=== PATIENT | female | born 1985 | race Two or more races ===

== ENCOUNTER 2017-08-27 08:44 | Emergency (ER) | payer BC ==
[~2017-08-27] VITALS: Ht 160 cm; Wt 81.6 kg
--- NOTE | 2017-08-27 09:16 | Emergency Room Report ---
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 And reported that everything was progressing appropriately At this time patient began having vaginal bleeding she reports that she was told she had a hematoma Otherwise denies any abdominal cramping denies any vomiting and has any chest pain or shortness of breath Allergies: Coded Allergies: No Known Allergies (Unverified , 08/27/17) Patient History Past Medical History: see triage record Pertinent Family History: none Last Menstrual Period: 10 weeks Now: Yes Reviewed Nursing Documentation: PMH: Agreed, PSxH: Agreed Nursing Documentation-PMH Past Medical History: No Stated History Review of Systems All Other Systems: negative except mentioned in HPI Physical Exam Vital Signs Date Time Temp Pulse Resp B/P (MAP) Pulse Ox O2 Delivery O2 Flow Rate FiO2 08/27/17 08:52 98.2 120 18 152/74 97 Room Air Sp02 EP Interpretation: reviewed, normal General Appearance: well appearing, no apparent distress Head: normocephalic, atraumatic Eyes: bilateral eye PERRL, bilateral eye EOMI ENT: hearing grossly normal, normal pharynx, TMs + canals normal, uvula midline Neck: full range of motion, supple, no meningismus, no bony tend Respiratory: lungs clear, normal breath sounds, no rhonchi, no respiratory distress, no retraction, no accessory muscle use Cardiovascular #1: normal peripheral pulses, regular rate, rhythm, no edema, no gallop, no JVD, no murmur Gastrointestinal: normal bowel sounds, non tender, soft, no mass, no organomegaly, non-distended, no guarding, no hernia, no pulsatile mass, no rebound Genitourinary: no CVA tenderness, other - Patient has soaked through her pants with blood Musculoskeletal: normal inspection Neurologic: oriented x3, responsive, variety performer III-XII nml as tested, motor strength/ tone normal, sensory intact Psychiatric: mood/affect normal Skin: normal color, no rash, warm/dry, palpation normal Lymphatic: normal inspection, no adenopathy Medical Decision Making Diagnostic Impression: Primary Impression: Threatened Additional Impression: Subchorionic hematoma ER Course With the patient's history and examination, multiple differentials considered, including but not limited to , ectopic , ovarian torsion, gastritis, cholecystitis, pancreatitis, appendicitis Patient's ultrasound reveals a what appears to be subchorionic hematoma Both gestational sacs are seen within the uterus also heart rate is seen Patient has been in contact with their IVF specialist and are following up there in the next 30 minutes at this time given the patient's blood work all within normal limits Patient does not show signs of hemorrhage acutely The os is also closed And therefore patient will have followup emergently with their specialist Labs Test 08/27/17 09:08 08/27/17 09:09 White Blood Count 13.0 K/UL (4.8-10.8) Red Blood Count 4.38 M/UL (4.20-5.40) Hemoglobin 13.8 G/DL (12.0-16.0) Hematocrit 39.5 % (37.0-47.0) Mean Corpuscular Volume 90 FL (80-99) Mean Corpuscular Hemoglobin 31.4 PG (27.0-31.0) Mean Corpuscular Hemoglobin Concent 34.8 G/DL (32.0-36.0) Red Cell Distribution Width 12.3 % (11.6-14.8) Platelet Count 242 K/UL (150-450) Mean Platelet Volume 9.5 FL (6.5-10.1) Neutrophils (%) (Auto) 71.4 % (45.0-75.0) Lymphocytes (%) (Auto) 17.7 % (20.0-45.0) Monocytes (%) (Auto) 3.9 % (1.0-10.0) Eosinophils (%) (Auto) 6.0 % (0.0-3.0) Basophils (%) (Auto) 1.1 % (0.0-2.0) Sodium Level 135 MMOL/L (136-145) Potassium Level 4.1 MMOL/L (3.5-5.1) Chloride Level 104 MMOL/L (98-107) Carbon Dioxide Level 23 MMOL/L (21-32) Anion Gap 8 mmol/L (5-15) Blood Urea Nitrogen 13 mg/dL (7-18) Creatinine 0.8 MG/DL (0.55-1.30) Estimat Glomerular Filtration Rate > 60 mL/min (>60) Glucose Level 153 MG/DL (74-106) Calcium Level 9.6 MG/DL (8.5-10.1) Total Bilirubin 0.3 MG/DL (0.2-1.0) Aspartate Amino Transf (AST/SGOT) 44 U/L (15-37) Alanine Aminotransferase (ALT/SGPT) 87 U/L (12-78) Alkaline Phosphatase 80 U/L (46-116) Total Protein 7.8 G/DL (6.4-8.2) Albumin 3.1 G/DL (3.4-5.0) Globulin 4.7 g/dL Albumin/Globulin Ratio 0.7 (1.0-2.7) Lipase 130 U/L (73-393) Human Chorionic Gonadotropin, Quant 62039 mIU/mL (1-6) CT/MRI/US Diagnostic Results CT/MRI/US Diagnostic Results : Impression pelvic ultrasoundImpression: Live twin , estimated gestational ages of 8 weeks one day and 9 weeks 4 days Suspect sizable subchorionic hemorrhage. Uterine fibroids Closed cervix Negative for adnexal mass Images please previously reviewed in person with Dr. Bowens nor Last Vital Signs Date Time Temp Pulse Resp B/P (MAP) Pulse Ox O2 Delivery O2 Flow Rate FiO2 08/27/17 08:52 98.2 120 18 152/74 97 Room Air Status: improved Disposition: HOME, SELF-CARE Condition: Improved Additional Instructions: The patient is following with her IV at specialist in the next 30 minutes Please note that this report is being documented using [employer] technology. This can lead to erroneous entry secondary to incorrect interpretation by the dictating instrument. LUCA DARBY D.O. Aug 27, 2017 09:16
[2017-08-27 09:33] LABS: BASOPHILS % (AUTO) 1.1 % (0.0-2.0); HEMATOCRIT 39.5 % (37.0-47.0); HEMOGLOBIN 13.8 G/DL (12.0-16.0); LYMPHOCYTES % (AUTO) 17.7 % (20.0-45.0); MEAN CORPUSCULAR VOLUME 90 FL (80-99); MONOCYTES % (AUTO) 3.9 % (1.0-10.0); NEUTROPHILS % (AUTO) 71.4 % (45.0-75.0); PLATELET COUNT 242 K/UL (150-450); RED BLOOD COUNT 4.38 M/UL (4.20-5.40); RED CELL DISTRIBUTION WIDTH 12.3 % (11.6-14.8)
[2017-08-27 09:34] VITALS: BP 165/79
[2017-08-27 09:57] LABS: ANION GAP 8 mmol/L (5-15); BLOOD UREA NITROGEN 13 mg/dL (7-18); CALCIUM 9.6 MG/DL (8.5-10.1); CARBON DIOXIDE 23 MMOL/L (21-32); CHLORIDE 104 MMOL/L (98-107); CREATININE 0.8 MG/DL (0.55-1.30); POTASSIUM 4.1 MMOL/L (3.5-5.1); SODIUM 135 MMOL/L (136-145)
[2017-08-27 10:01] LABS: ALANINE AMINOTRANSFERASE 87 U/L (12-78); ALBUMIN 3.1 G/DL (3.4-5.0); ALBUMIN/GLOBULIN RATIO 0.7 (1.0-2.7); ALKALINE PHOSPHATASE 80 U/L (46-116); ASPARTATE AMINO TRANSFERASE 44 U/L (15-37); BILIRUBIN,TOTAL 0.3 MG/DL (0.2-1.0)
[2017-08-27 12:51] VITALS: BP 150/79
--- NOTE | 2017-08-27 13:18 | Diagnostic Imaging Report ---
Indication: Excessive vaginal bleeding, positive Technique: Transabdominal and transvaginal images Comparison: none Findings: Uterus measures 12.6 cm in length by 8.3 cm AP. Within the endometrium are 2 gestational sacs. That lower in the uterus is labeled as fetus A. The higher in the uterus is fetus B. "A" demonstrates a crown-rump length of 17 mm, corresponding to estimated gestational age of 8 weeks one day this demonstrates positive heart activity, heart rate 163 bpm. "B" demonstrates a crown-rump length of 20 mm, corresponding estimated gestational age 9 weeks 4 days. There is positive heart activity, heart rate 171 bpm. There is a sizable area of heterogeneity in the anterior lower uterine segment, measuring 6.6 x 2.6 cm, suspicious for an area of subchorionic hemorrhage. Adjacent to this is and somewhat inseparable from it is a rounded hyperechoic structure measuring 3.1 cm and probably represents a fibroid. There is a small amount of free cul-de-sac fluid. No adnexal mass. The cervix is closed, but contains a small amount of debris, likely old blood. Transabdominal images demonstrate a 3 cm exophytic subserosal fibroid. Impression: Live twin , estimated gestational ages of 8 weeks one day and 9 weeks 4 days Suspect sizable subchorionic hemorrhage. Uterine fibroids Closed cervix Negative for adnexal mass Images please previously reviewed in person with Dr. Bowens nor
== END 2017-08-27 12:54 | disposition home or self-care (01) ==
LOC: EMR 09:00
DX: O20.0 Threatened abortion (principal); O30.001 Twin pregnancy, unspecified number of placenta and unspecified number of amniotic sacs, first trimester; O34.11 Maternal care for benign tumor of corpus uteri, first trimester; D25.2 Subserosal leiomyoma of uterus; Z3A.09 9 weeks gestation of pregnancy
CPT/HCPCS: 36415; 76801; 76830; 80053; 83690; 84702; 85025; 86900; 86901; 96361; 99284